=== PATIENT | female | born 1955 | race Caucasian/White ===

== ENCOUNTER → 2016-04-22 | Outpatient (CLI) | payer BC ==
[~2016-04-22] MED LIST: AMIT10TA6 PO; ASPI-435 PO; CALC600T9 PO; CRAN500C2 PO; GLC500 PO; HYDR-5688 PO; HYDR25TA4 PO; LISI1TAB3 PO; MULT-506 PO; OMEGCAP2 PO; SIMV40TA4 PO; VTMB12 PO
--- NOTE | 2016-04-22 11:44 | DIAGNOSTIC IMAGING REPORT ---
KUB CLINICAL HISTORY: Nephrolithiasis. COMPARISON STUDY: CT of the abdomen and pelvis July 09, 2015. FINDINGS: Pelvic calcifications likely reflect phleboliths or vascular calcifications. There is a suspected punctate calculus within the lower pole of the left kidney. No ureteral calculi are identified. No right renal calculi are identified although right renal shadow is largely obscured by stool. IMPRESSION: 1. Suspected left-sided nephrolithiasis. 2. No ureteral calculi identified. 3. Right renal shadow largely obscured by stool. Electronically signed by: Blake James M.D. 04/22/2016 11:43 AM Dictated Date/Time: 04/22/2016 11:39 AM
== END | disposition home or self-care (01) ==
LOC: C.RAD1850 11:21
PROVIDERS: ATTEND Internal Medicine
DX: N20.0 Calculus of kidney (principal); K59.00 Constipation, unspecified

== ENCOUNTER → 2016-06-28 | Outpatient (CLI) | payer BC ==
[~2016-06-28] MED LIST changes: -HYDR-5688 PO
== END | disposition home or self-care (01) ==
LOC: C.PAPS 10:52
PROVIDERS: ATTEND Obstetrics & Gynecology
DX: Z01.419 Encounter for gynecological examination (general) (routine) without abnormal findings (principal)

== ENCOUNTER → 2016-08-11 | Outpatient (CLI) | payer BC ==
--- NOTE | 2016-08-11 13:49 | DIAGNOSTIC IMAGING REPORT ---
ABDOMEN AND PELVIS CT WITHOUT CONTRAST CT DOSE: 998.73 mGycm HISTORY: Nephrocalcinosis N20.0 Nephrolithiasis TECHNIQUE: Multiaxial CT images of the abdomen and pelvis were performed without contrast. COMPARISON STUDY: 07/09/2015 FINDINGS: Minimal chronic interstitial change of the lung bases. Scarlike density with subtle nodular character anterior medial right phrenic angle. This measures 6 mm. No additional pulmonary nodular change. Liver spleen and pancreas appear unremarkable. Right kidney demonstrates a nonobstructing calcification at its lower pole measuring 4 mm. There is no evidence for a right-sided obstructing calculus. Left kidney demonstrates several nonobstructing upper pole renal calcifications. These measure up to 4 mm. Bowel pattern overall is nonobstructive. The appendix is normal. There are several pelvic vascular calcifications. There is a component of chronic sigmoid diverticulosis. There is no evidence for acute diverticulitis. IMPRESSION: 1. Several nonobstructing renal calcifications bilaterally. 2. No evidence for an obstructing urinary tract calculus. 3. Chronic sigmoid diverticulosis. 4. No evidence for acute diverticulitis. 5. Possible developing nodular density right base measuring 6 mm. Follow-up per Fleischner criteria. Please refer to below summary of Fleischner criteria recommendations for follow-up of incidental CT nodules (Ambar Smith, Guidelines for management of small pulmonary nodules detected on CT scans: A statement from the Fleischner Society, Radiology 237: [phone].) SOLID NODULES Solitary nodule size: <6 mm * low risk patients: no follow-up needed * high risk patients: optional CT at 12 months Solitary nodule size: 6-8 mm * low risk patients: follow-up at 6-12 months, then consider further follow-up at 18-24 months * high risk patients: initial follow-up CT at 6-12 months and then at 18-24 months if no change Solitary nodule size: >8 mm * either low or high risk patients - consider follow-up CT at 3 months, and/or CT-PET, and/or biopsy Multiple nodules size: <6 mm * low risk patients: no routine follow-up * high risk patients: optional CT at 12 months Multiple nodules size: 6-8 mm * low risk patients: follow-up at 3-6 months, then consider further follow-up at 18-24 months * high risk patients: follow-up at 3-6 months, then at 18-24 months if no change Multiple nodules size: >8 mm * low risk patients: follow-up at 3-6 months, then consider further follow-up at 18-24 months * high risk patients: follow-up at 3-6 months, then at 18-24 months if no change Note: newly detected indeterminate nodule in persons 35 years of age or older. * Low risk patients: minimal or absent history of smoking and/or other known risk factors * high risk patients: history of smoking or of other known risk factors (e.g. first degree relative with lung cancer, or exposure to asbestos, radon, uranium) * if a nodule up to 8 mm is partly solid or is ground glass further follow-up is required after 24 months to exclude possible slow growing adenocarcinoma (SERGE) SUBSOIL NODULES Solitary pure ground-glass nodule * nodule size <6 mm - no CT follow-up required * nodule size >=6 mm - follow-up CT at 6-12 months, then every 2 years until 5 years Solitary part-solid nodule * nodule size <6 mm - no CT follow-up required * nodule size >=6 mm - follow-up CT at 3-6 months. If unchanged, and solid component remains <6 mm, then annual follow-up for 5 years Multiple subsolid nodules * nodule size <6 mm - follow-up CT at 3-6 months, consider further follow-up at 2 and 4 years if stable * nodule size >=6 mm - follow-up CT at 3-6 months, subsequent management based on the most suspicious nodule(s) Electronically signed by: Richard Wilkerson M.D. 08/11/2016 1:48 PM Dictated Date/Time: 08/11/2016 1:42 PM
== END | disposition home or self-care (01) ==
LOC: C.CTS 13:01
PROVIDERS: ATTEND Urology
DX: N20.0 Calculus of kidney (principal); K57.30 Diverticulosis of large intestine without perforation or abscess without bleeding

== ENCOUNTER → 2016-08-11 | Outpatient (CLI) | payer BC ==
--- NOTE | 2016-08-11 10:18 | DIAGNOSTIC IMAGING REPORT ---
KUB CLINICAL HISTORY: N20.0 [id number] nephrocalcinosis COMPARISON STUDY: 04/22/2016 FINDINGS: 3.5 mm calcification lower pole right kidney most likely unchanged in the prior exam. No significant left-sided nephrocalcinosis on the current study. No significant paravertebral calcifications. Bowel pattern is nonobstructive. IMPRESSION: 1. Stable lower pole right renal calcification. This is seen in retrospect on the prior exam. 2. No significant left-sided nephrocalcinosis on the current study Electronically signed by: Richard Wilkerson M.D. 08/11/2016 10:17 AM Dictated Date/Time: 08/11/2016 10:13 AM
== END | disposition home or self-care (01) ==
LOC: C.RAD1850 09:40
PROVIDERS: ATTEND Urology
DX: N20.0 Calculus of kidney (principal)

== ENCOUNTER → 2016-09-07 | Outpatient (CLI) | payer BC ==
[~2016-09-07] MED LIST changes: +OPTIRAY 320 IV PRN
--- NOTE | 2016-09-07 08:37 | DIAGNOSTIC IMAGING REPORT ---
CHEST CT WITH CONTRAST CT DOSE: 232.95 mGy.cm HISTORY: R91.1 Solitary pulmonary [id number] TECHNIQUE: Multiaxial CT images of the chest were performed following the intravenous administration of contrast. A dose lowering technique was utilized adhering to the principles of ALARA. COMPARISON: Abdomen and pelvis CT 08/11/2016. FINDINGS: The central airways are patent. No pleural effusions. No pneumothorax. The left lung is clear. Small focal irregular density within the medial aspect of the right middle lobe is not significantly changed. This measures approximately 12 x 8 mm and demonstrates a linear appearance on coronal reformations. Therefore, this favors an area of scarring. No suspicious pulmonary nodules identified. No mediastinal or hilar lymphadenopathy. The visualized liver and spleen are unremarkable. No pleural effusions. Normal caliber thoracic aorta. The main pulmonary arteries are patent. IMPRESSION: A 12 x 8 mm focal irregular density within the the right middle lobe is not significantly changed. This favors an area of scarring . However, six-month to one-year chest CT follow-up can be performed to ensure stability. Electronically signed by: Jam Arevalo M.D. 09/07/2016 8:35 AM Dictated Date/Time: 09/07/2016 8:29 AM
== END | disposition home or self-care (01) ==
LOC: C.CTS 08:07
PROVIDERS: ATTEND Internal Medicine
DX: R91.1 Solitary pulmonary nodule (principal)

== ENCOUNTER → 2016-10-20 | Outpatient (CLI) | payer BC ==
[~2016-10-20] MED LIST changes: -OPTIRAY 320 IV PRN
--- NOTE | 2016-10-20 14:22 | MAMMOGRAPHY REPORT ---
BILATERAL DIGITAL SCREENING MAMMOGRAM TOMOSYNTHESIS WITH CAD: 10/20/2016 CLINICAL HISTORY: Routine screening. Patient has no complaints. TECHNIQUE: Breast tomosynthesis in addition to standard 2D mammography was performed. Current study was also evaluated with a Computer Aided Detection (CAD) system. COMPARISON: Comparison is made to exams dated: 10/17/2015 mammogram, 10/04/2014 mammogram, 09/13/2013 [facility] mogram, 09/11/2012 mammogram, 09/09/2011 mammogram, and 09/08/2010 mammogram - [facility] . BREAST COMPOSITION: There are scattered areas of fibroglandular density in both breasts. FINDINGS: No suspicious masses, calcifications, or areas of architectural distortion are noted in ei ther breast. There has been no significant interval change compared to prior exams. Bilateral benign -appearing calcifications are again noted. IMPRESSION: ACR BI-RADS CATEGORY 2: BENIGN There is no mammographic evidence of malignancy. A 1 year screening mammogram is recommended. The pa tient will receive written notification of the results. Approximately 10% of breast cancers are not detected with mammography. A negative mammographic report should not delay biopsy if a clinically suggestive mass is present. Nancy Bahena M.D. /:10/20/2016 12:21:52 Expressive Music Therapist: Tatiana LEVY)(M), [facility] letter sent: Normal 1/2 BI-RADS Code: ACR BI-RADS Category 2: Benign
== END | disposition home or self-care (01) ==
LOC: C.MAMM 11:53
PROVIDERS: ATTEND Obstetrics & Gynecology
DX: Z12.31 Encounter for screening mammogram for malignant neoplasm of breast (principal)

== ENCOUNTER → 2017-01-27 | Outpatient (CLI) | payer BC ==
--- NOTE | 2017-01-27 16:16 | DIAGNOSTIC IMAGING REPORT ---
CHEST 2 VIEWS ROUTINE HISTORY: COUGH COMPARISON: Chest 02/28/2015. FINDINGS: The lungs are clear. Cardiac silhouette is normal in size. No pleural effusions. No pneumothorax. IMPRESSION: No acute process. Electronically signed by: Jam Arevalo M.D. 01/27/2017 4:15 PM Dictated Date/Time: 01/27/2017 4:14 PM
== END | disposition home or self-care (01) ==
LOC: C.RAD1850 16:02
PROVIDERS: ATTEND Internal Medicine
DX: R05 Cough (principal)

== ENCOUNTER → 2017-03-24 | Outpatient (CLI) | payer OTHER ==
[~2017-03-24] MED LIST changes: +OPTIRAY 320 IV PRN
--- NOTE | 2017-03-24 11:45 | DIAGNOSTIC IMAGING REPORT ---
(CHEST) THORAX WITH CLINICAL HISTORY: 61 years-old Female presenting with ABNORMAL CT, DENSITY OF RT MIDDLE LOBE. TECHNIQUE: Multidetector CT imaging of the chest was performed after the administration of intravenous contrast. IV contrast: None. A dose lowering technique was used consistent with the principles of ALARA (as low as reasonably achievable). COMPARISON: CT chest from 09/07/2016. CT DOSE (mGy.cm): The estimated cumulative dose is 310.69 mGycm. FINDINGS: Chief Medical Officer topogram: Unremarkable. On soft tissue windows, normal thyroid and thoracic inlet. No axillary, supraclavicular, hilar, or mediastinal lymphadenopathy. Atherosclerosis of the aorta. Normal heart size. Coronary artery calcification. No pericardial or pleural effusion. Upper abdomen normal. On lung windows, previously noted bandlike consolidation in the medial right middle lobe is unchanged and consistent with atelectasis or scarring. No focal nodule. Minimal dependent atelectasis noted. Airways patent. On bone windows, degenerative changes of the spine. IMPRESSION: 1. Right middle lobe consolidation consistent with atelectasis or scarring. No suspicious pulmonary nodule. Electronically signed by: Pranav Prasad M.D. 03/24/2017 11:44 AM Dictated Date/Time: 03/24/2017 11:41 AM
== END | disposition home or self-care (01) ==
LOC: C.CTS 10:55
PROVIDERS: ATTEND Internal Medicine
DX: R91.1 Solitary pulmonary nodule (principal); R93.8 Abnormal findings on diagnostic imaging of other specified body structures

== ENCOUNTER 2024-02-02 22:30 | Observation (INO) ==
--- NOTE | 2024-02-02 22:50 | Emergency Department Note ---
History of Present Illness General Chief complaint: Urinary Symptoms Stated complaint: POSS UTI OR KIDNEY STONE, ABD PAIN, NAUSEA Time Seen by Provider: 02/02/24 22:33 History of Present Illness Maximum Pain Intensity: 8 This 68-year-old female who had a bladder sling procedure done 2 months ago with Rain and was recently treated for UTI with Keflex presents ER complaint of urinary symptoms left lower quadrant and left flank pain. She emailed her provider and was advised to give a urine sample but no order was placed. Patient denies fever, chills, vomiting. She appears uncomfortable on exam. She has a history of kidney stones and urine infections. Home Medications Medication Instructions Recorded Confirmed Type calcium carbonate 600 mg PO QDL 09/08/18 02/03/24 History cranberry 500 mg capsule 500 mg PO QAM 09/08/18 02/03/24 History cyanocobalamin (vitamin B-12) 1,000 mcg PO QAM 09/08/18 02/03/24 History 1,000 mcg tablet multivitamin (Daily Multi-Vitamin 1 tab PO QAM 09/08/18 02/03/24 History tablet) aspirin 81 mg tablet,delayed 81 mg PO DAILY 10/26/21 02/03/24 History release hydrochlorothiazide 25 mg tablet 25 mg PO QAM #90 tabs 03/30/23 02/03/24 Rx Bacillus coagulans 2 billion 1 ea PO DAILY 05/04/23 02/03/24 History cell-fucosyllactose 4 gram powder packet (Culturee Abdominal Support-Comft) metformin 1,000 mg tablet 1,000 mg PO BID #60 tabs 09/06/23 02/03/24 Rx ferrous sulfate 325 mg (65 mg 325 mg PO Q2D 11/16/23 02/03/24 History iron) tablet (Joaquim-Time) magnesium glycinate 100 mg (as 240 mg (2.4 x 100 mg) PO HS #30 11/16/23 02/03/24 Rx glycinate) tablet tabs omega-3 fatty acids 500 mg PO DAILY 11/16/23 02/03/24 History psyllium husk 0.4 gram capsule 0.4 g PO DAILY 11/16/23 02/03/24 History simvastatin 40 mg tablet 40 mg PO HS #90 tabs 11/16/23 02/03/24 Rx lisinopril 40 mg tablet 40 mg PO QAM #90 tabs 12/30/23 02/03/24 Rx valacyclovir 1 gram tablet 2,000 mg PO BID PRN Cold Sores 02/03/24 02/03/24 History Allergies Allergy/AdvReac Type Severity Reaction Status Date / Time azithromycin [From Zithromax] Allergy Intermediate Rash Verified 01/03/24 12:50 ciprofloxacin AdvReac Unknown Rash Verified 01/03/24 12:50 nitrofurantoin AdvReac Unknown GI symptoms Verified 01/03/24 12:50 Sulfa (Sulfonamide AdvReac Unknown Rash Verified 01/03/24 12:50 Antibiotics) Past Med/Surg History Problem List Hypomagnesemia (Acute) Acute pyelonephritis (Acute) History of cold sores Degenerative joint disease, right, foot Restless legs syndrome Solitary pulmonary nodule (Acute) Psoriasis (Acute) Pre-diabetes (Acute) Nephrolithiasis (Acute) Lymphocytic colitis (Acute) Hyperinsulinism (Acute) Eustachian tube dysfunction (Acute) Abnormal finding on mammography (Acute) Cervical radicular pain Carpal tunnel syndrome on both sides Pelvic floor dysfunction Mixed incontinence Stress incontinence Depression (Acute) Anxiety (Acute) Hypercholesterolemia (Acute) Hypertension (Acute) Insomnia (Acute) Osteopenia (Acute) Urinary urgency (Acute) Medical History History of COVID-19 Dx 01/2021 HSV infection History of nephrolithiasis Incontinence Surgical History History of cataract surgery B/L H/O cystoscopy 09/08/2021 Dr. Thomson S/P cystoscopy Cystoscopy, periurethral bulking agent (04/05/2020): MAC at [facility]. No issues noted per postop anesthesia progress note. History of tooth extraction History of colonoscopy History of carpal tunnel surgery R/L (2019) History of lithotripsy Renal History of dilation and curettage History of foot surgery History of myringoplasty History of Tympanic Membrane Repair - Left Ear History of section Family History Mother Acute myocardial infarction Father Mehreen's chorea Brother Haralson's chorea Coronary arteriosclerosis S/P CABG x 4 Myocardial infarction Denies family history of Ovarian cancer Prostate cancer Breast cancer Colorectal cancer Social History Smoking Status: Never smoker Second Hand Exposure: No; Do You Dip or Chew Tobacco: No; Hx Alcohol Use: Yes Alcohol type: beer, wine and hard liquor Alcohol type Comment: socially Hx Substance Use: No Preferred Language: Icelandic Communication Ability: Effective Visual Impairment: No Limitations Hearing Ability: Normal Floor Helper Required: No Beliefs That Will Affect Care: None marital status: Single Current Living Situation: Alone current occupational status: retired current occupation: retired from registration at [employer] Feels Safe at Home: Yes Childhood Exposure to Second-Hand Smoke: Yes Diet: regular caffeine: Yes Dental Care, Regularly: Yes Physical Activity Frequency: 5-6 Times per Week Seatbelt Use: always Sunscreen Use: Yes Assistive Devices: Glasses Review of Systems A total of 10 systems reviewed and were otherwise negative Physical Exam Vital Signs Vital Signs - 24 hr 02/02/24 22:32 02/02/24 23:28 02/02/24 23:31 Temperature 36.6 C Temperature Source Temporal Artery Scan Pulse Rate 108 H 82 Pulse Rate [Right Brachial] Pulse Rhythm [Right Brachial] Pulse Strength [Right Brachial] Respiratory Rate 18 Respiratory Effort / Characteristics Non-Labored Spontaneous Respiratory Depth Normal Respiratory Pattern Regular Blood Pressure 199/96 H Blood Pressure [Right Arm] Blood Pressure Mean 130 Blood Pressure Mean [Right Arm] Blood Pressure Position Sitting Blood Pressure Position [Right Arm] Pulse Oximetry 97 96 Oxygen Delivery Method Room Air Room Air Sepsis Recent Fever Within 48 Hours No Sepsis New/Unexplained Change in Mental Status N/A Sepsis Action Taken by Nursing No Action Required 02/03/24 00:30 02/03/24 02:00 Temperature Temperature Source Pulse Rate Pulse Rate [Right Brachial] 86 85 Pulse Rhythm [Right Brachial] Regular Regular Pulse Strength [Right Brachial] Normal Normal Respiratory Rate 16 18 Respiratory Effort / Characteristics Non-Labored Non-Labored Respiratory Depth Normal Normal Respiratory Pattern Regular Regular Blood Pressure Blood Pressure [Right Arm] 137/76 137/76 Blood Pressure Mean Blood Pressure Mean [Right Arm] 96 96 Blood Pressure Position Blood Pressure Position [Right Arm] Sitting Sitting Pulse Oximetry 96 96 Oxygen Delivery Method Room Air Room Air Sepsis Recent Fever Within 48 Hours Sepsis New/Unexplained Change in Mental Status Sepsis Action Taken by Nursing VITALS: Vitals are noted on the nurse's note and reviewed by myself. Vital signs stable. GENERAL: Pleasant female, in no acute distress, nondiaphoretic, well-developed well-nourished. SKIN: Capillary reflex less than 2 seconds. HEENT: Normocephalic. PERRLA. EOMI. Nares patent. Mucous membranes moist. Neck is supple without nuchal rigidity. HEART: Regular rate and rhythm LUNGS: Clear to auscultation bilaterally without wheezes, rales or rhonchi. No retractions or accessory muscle use. ABDOMEN: Positive bowel sounds x 4. Normal tympanic percussion. Soft, tender to palpation suprapubic left lower quadrant, without masses or organomegaly. Lugo sign negative. No guarding or rebound tenderness. no CVA tenderness MUSCULOSKELETAL: No gross musculoskeletal defects. NEURO: Patient was alert and oriented to person place and time. No focal neurological deficits. Course Administered Medications Magnesium Sulfate/Dextrose (Magnesium Sulfate / D5w) 1 gm in 100 mls @ 100 mls/hr IV Q1H ANTIONETTE Stop: 02/03/24 03:48 Last Admin: 02/03/24 01:55 Dose: 100 mls/hr Documented By: ROE Discontinued Medications Acetaminophen (Ofirmev) 1,000 mg in 100 mls @ 400 mls/hr IV NOW STA Stop: 02/02/24 23:00 Last Infusion: 02/02/24 23:37 Dose: Infused Documented By: Admin: 02/02/24 23:06 Dose: 400 mls/hr Documented By: ROE Ceftriaxone Sodium (Rocephin) 2,000 mg in 50 mls @ 100 mls/hr IV NOW STA Stop: 02/02/24 23:15 Last Infusion: 02/02/24 23:37 Dose: Infused Documented By: Admin: 02/02/24 23:06 Dose: 100 mls/hr Documented By: ROE Ioversol (Optiray 320 100ml) 100 ml IV ONCE ONE Stop: 02/03/24 00:12 Last Admin: 02/03/24 00:12 Dose: 93 ml Documented By: NOBLE Ondansetron HCl (Ondansetron Inj 2 Mg/Ml 2 Ml Vial) 4 mg IV NOW STA Stop: 02/02/24 22:47 Last Admin: 02/02/24 23:38 Dose: Not Given Documented By: ROE Potassium Chloride (Potassium Chloride 20 Meq/15 Ml Udc) 40 meq PO NOW STA Stop: 02/02/24 23:50 Last Admin: 02/03/24 00:01 Dose: 40 meq Documented By: ROE Medical Decision Making Medical Records Attestation: I reviewed the patient's medical records. Home Medications Current Medication List: was personally reviewed by me Laboratory Data Attestation: I reviewed the patient's lab results. 02/02/24 23:06 02/02/24 23:06 Lab Results 02/02/24 02/02/24 02/03/24 Range/Units 23:06 23:09 02:12 WBC 14.31 H (4.8-10.8) K/ul RBC 4.53 (4.20-5.40) M/uL Hgb 14.1 (12.0-16.0) g/dl Hct 39.5 (37.0-47.0) % MCV 87.2 (80.0-100.0) fL MCH 31.1 (25.0-34.0) pg MCHC 35.7 (32.0-36.0) g/dL RDW Std Deviation 39.6 (36.4-46.3) fL RDW Coeff of Ziyad 12.4 (11.5-14.5) % Plt Count 358 (130-400) K/uL MPV 9.1 L (9.4-12.4) fL Immature Gran % (Auto) 0.8 % Neut % (Auto) 63.3 % Lymph % (Auto) 26.8 % [place] % (Auto) 7.0 % Eos % (Auto) 1.7 % Baso % (Auto) 0.4 % Neut # (Auto) 9.05 H (1.40-6.50) K/uL Lymph # (Auto) 3.84 H (1.20-3.40) K/uL [place] # (Auto) 1.00 H (0.11-0.59) K/uL Eos # (Auto) 0.24 (0.00-0.50) K/uL Baso # (Auto) 0.06 (0.00-0.20) K/uL Immature Gran # (Auto) 0.12 (0.01-0.20) K/uL Sodium 134 L (136-145) mmol/L Potassium 3.1 L (3.5-5.1) mmol/L Chloride 96 L (98-107) mmol/L Carbon Dioxide 27 (21-32) mmol/L Anion Gap 11 (3-11) BUN 14 (6-23) mg/dl Creatinine 0.69 (0.6-1.2) mg/dl Est Cr Clr Drug Dosing 70.9 ml/min eGFR 94.47 BUN/Creatinine Ratio 20.3 H (10-20) Glucose 111 H (70-99(Fasting)) mg/dl Lactate 2.8 H* (0.4-2.0) mmol/L Calcium 9.6 (8.6-10.3) mg/dl Magnesium 1.3 L (1.7-2.4) mg/dl Total Bilirubin 0.4 (0.2-1.0) mg/dl AST 28 (13-39) U/L ALT 29 (7-52) U/L Alkaline Phosphatase 112 H (34-104) U/L Total Protein 7.0 (6.0-8.3) gm/dl Albumin 4.2 (3.4-5.0) gm/dl Globulin 2.8 (2.5-4.0) gm/dl Albumin/Globulin Ratio 1.5 (0.9-2) Lipase 37 (11-82) U/L Urine Color Yellow Urine Appearance Cloudy A (Clear) Urine pH 7.0 (4.5-7.5) Ur Specific [place] 1.009 (1.000-1.030) Urine Protein 1+ H (Negative) Urine Glucose (UA) Negative (Negative) Urine Ketones Negative (Negative) Urine Blood 2+ H (Negative) Urine Nitrite Negative (Negative) Urine Bilirubin Negative (Negative) Urine Urobilinogen Negative (Negative) Ur Leukocyte Esterase 3+ H (Negative) Urine WBC (Auto) >50 H (0-5) /hpf Urine RBC (Auto) 11-20 H (0-2) /hpf U Hyaline Cast (Auto) 3-5 H (0-2) /lpf U Epithel Cells (Auto) 0-2 (0-2) /hpf Urine Bacteria (Auto) 1+ H (None Seen) Imaging Data Attestation: I personally reviewed and interpreted this imaging study as follows: Radiologist's Impression: Abdomen/Pelvis CT 02/02/24 22:46 EXAM: CT abd pelvis IV con only CLINICAL HISTORY: LLQ pain, UTI, 93 ml optiray 320 TECHNIQUE: Contiguous axial images were obtained from the level of the diaphragm to the pubic symphysis with intravenous contrast. Coronal and sagittal reconstructions were likewise performed and indicated to increase the sensitivity for detecting clinically relevant pathology. If IV contrast material had not been administered, the likelihood of detecting abnormalities relevant to the patient's condition would have been substantially decreased. CT scan was performed according to ALARA (as low as reasonable achievable). COMPARISON: 10/26/2021 18:25:16 GARMENT CUTTER FINDINGS: The visualized lung bases are clear. The liver is normal in size and attenuation. No focal liver lesions are seen. There is no intra or extrahepatic biliary ductal dilatation. Hepatic vasculature is patent. The gallbladder is distended and shows a calculus of size 5 mm a normal wall thickness.. The spleen, pancreas, and adrenal glands are unremarkable. The kidneys are normal in size and attenuation. There is no hydronephrosis or perinephric fat stranding. Left kidney shows no obstructing calculus of size 6 mm and 2 mm in upper calyx. Mild enhancing thickening is noted involving left pelvi calyceal system and left ureter- possibility of pyelonephritis. The ureters are normal in caliber and no ureteral calculi are seen. The bladder is normal in contour. Pelvic viscera are unremarkable. No focal or diffuse bowel wall thickening or evidence of bowel obstruction is identified. The appendix is visualized in the right lower quadrant and appears within normal limits. Abdominal and pelvic vasculature is patent. No adenopathy or fluid collections are seen. No aggressive appearing osseous lesions are identified. Multiple small uncomplicated sigmoid colonic diverticulosis. IMPRESSION: Uncomplicated cholelithiasis.-stable. Non-obstructing left renal calculi.-stable. Mild enhancing thickening is noted involving left pelvi calyceal system and left ureter- possibility of pyelonephritis. Multiple small uncomplicated sigmoid colonic diverticulosis.-stable. Electronically signed by Anshul Hurtado 02-03-2024 01:41 AM MDM Narrative Prior records/ancillary studies reviewed. Triage Nursing notes reviewed. Additional history obtained from nursing. The patient's history was concerning for urinary symptoms and abdominal pain. Differential diagnosis: Etiologies such as appendicitis, diverticulitis, PUD, biliary pathology, UTI, pancreatitis, obstruction, mesenteric ischemia, aortic pathology, infections, inflammatory bowel disease, renal colic, as well as others were entertained. Physical examination findings: As above. ER treatment provided: An order was placed for continuous cardiac monitoring. The monitor shows a rate of 60-100 with a sinus rhythm per my Independent interpretation. Rocephin, Zofran and Tylenol ordered Magnesium was replaced On reassessment the patient felt better. Diagnostics interpreted by me: The labs Independently Interpreted by myself revealed leukocytosis, urine concerning for infection sent for culture Blood cultures pending Low magnesium and this was replaced Imaging studies: CT was reviewed and read by radiology as above Consultation: A consultation was placed with the hospitalist. The case was discussed and diagnostics were reviewed. The patient was evaluated in the ER for further treatment. Exam and history seem consistent with pyelonephritis and low magnesium. Patient was given antibiotics upon initial evaluation. Urine culture pending. Medicine was consulted and the case is discussed. She will be admitted to the medical service. By the evaluation outlined above emergent etiologies such as appendicitis, diverticulitis, PUD, biliary pathology, pancreatitis, obstruction, mesenteric ischemia, aortic pathology, inflammatory bowel disease, renal colic, as well as others were deemed relatively unlikely. The pt informed about the findings as listed above. All questions were answered and pleased with the treatment. The chart was completed utilizing Max[employer]iser Speech voice recognition software. Grammatical errors, random word insertions, pronoun errors, and incomplete sentences are an occassional consequence of this system due to software limitations, ambient noise, and hardware issues. Any formal questions or concerns about the content, text, or information contained within the body of this dictation should be directly addressed to the physician respiratory care assistant for clarification. Impression & Plan Acute pyelonephritis, Hypomagnesemia Discharge Plan Visit Data Chief Complaint: Urinary Symptoms Stated Complaint: POSS UTI OR KIDNEY STONE, ABD PAIN, NAUSEA ED Provider: Ana Swenson ED Midlevel Provider: Debbie Groves Discharge Problem: Acute pyelonephritis, Hypomagnesemia Patient Disposition: Admitted As Inpatient Condition: Good Forms Stand Alone Forms: Clearwave Prescriptions Prescriptions: No Action cyanocobalamin (vitamin B-12) 1,000 mcg tablet 1,000 mcg PO QAM multivitamin [Daily Multi-Vitamin] tablet 1 tab PO QAM cranberry 500 mg capsule 500 mg PO QAM calcium carbonate 600 mg calcium (1,500 mg) tablet 600 mg PO QDL Culturelle Abdominal Supp-Cmft 2 billion cell- 4 gram powder in packet 1 ea PO DAILY psyllium husk 0.4 gram capsule 0.4 g PO DAILY ferrous sulfate [Joaquim-Time] 325 mg (65 mg iron) tablet 325 mg PO Q2D magnesium glycinate 100 mg tablet 240 mg PO HS Qty: 30 0RF simvastatin 40 mg tablet 40 mg PO HS Qty: 90 3RF metformin 1,000 mg tablet 1,000 mg PO BID Qty: 60 6RF lisinopril 40 mg tablet 40 mg PO QAM Qty: 90 3RF hydrochlorothiazide 25 mg tablet 25 mg PO QAM Qty: 90 3RF aspirin [Aspir-Low] 81 mg Tablet,Delayed Release (Dr/Ec) 81 mg PO DAILY omega-3 fatty acids Capsule 500 mg PO DAILY valacyclovir 1 gram tablet 2,000 mg PO BID PRN (Reason: Cold Sores) Rx Instructions: For cold sore Referrals Referrals: Atiya Hinton MD [Primary Care Provider] -
[2024-02-02] MEDS: cefTRIAXone SODIUM 2,000 MG/50 ML BAG IV STA (23:06)
[2024-02-02] MEDS: ACETAMINOPHEN 1,000 MG/100 ML VIAL IV STA (23:06)
[2024-02-02] MEDS: ONDANSETRON INJ 2 MG/ML 2 ML VIAL IV STA (23:38)
[2024-02-02 23:41] LABS: Basophils # (auto) 0.06 K/uL (0.00-0.20); Basophils % (auto) 0.4 %; Eosinophils # (auto) 0.24 K/uL (0.00-0.50); Eosinophils % (auto) 1.7 %; Hematocrit (blood only) 39.5 % (37.0-47.0); Hemoglobin 14.1 g/dl (12.0-16.0); Immature Granulocytes # (auto) 0.12 K/uL (0.01-0.20); Immature Granulocytes % (auto) 0.8 %; Lymphocytes # (auto) 3.84 K/uL (1.20-3.40); Lymphocytes % (auto) 26.8 %; Mean Corpuscular Hemoglobin 31.1 pg (25.0-34.0); Mean Corpuscular Hgb Conc 35.7 g/dL (32.0-36.0); Mean Corpuscular Volume 87.2 fL (80.0-100.0); Mean Platelet Volume 9.1 fL (9.4-12.4); Neutrophils # (auto) 9.05 K/uL (1.40-6.50); Neutrophils % (auto) 63.3 %; Platelet Count 358 K/uL (130-400); RDW Coefficient of Variation 12.4 % (11.5-14.5); RDW Standard Deviation 39.6 fL (36.4-46.3); Red Blood Count 4.53 M/uL (4.20-5.40); White Blood Count 14.31 K/ul (4.8-10.8)
[2024-02-02 23:48] LABS: Albumin Globulin Ratio 1.5 (0.9-2); Albumin Level 4.2 gm/dl (3.4-5.0); BUN Creatinine Ratio 20.3 (10-20); Bilirubin,Total 0.4 mg/dl (0.2-1.0); Calcium 9.6 mg/dl (8.6-10.3); Creatinine Clr Calc Pharmacy 70.9 ml/min; Globulin 2.8 gm/dl (2.5-4.0); Potassium 3.1 mmol/L (3.5-5.1)
[2024-02-02 23:51] LABS: Appearance Urine Cloudy (Clear); Bacteria Urine Automated 1+ (None Seen); Bilirubin Urine Negative (Negative); Blood Urine 2+ (Negative); Color Urine Yellow; Epithelial Cell Urine Auto 0-2 /hpf (0-2); Glucose Urine UA Negative (Negative); Ketones Urine Negative (Negative); Leukocyte Esterase Urine 3+ (Negative); Nitrite Urine Negative (Negative); Protein Urine 1+ (Negative); Specific Gravity Urine 1.009 (1.000-1.030); Urobilinogen Urine Negative (Negative); WBC Urine Automated >50 /hpf (0-5)
[2024-02-03] MEDS: POTASSIUM CHLORIDE 20 MEQ/15 ML UDC PO STA (00:01)
[2024-02-03 00:09] LABS: Magnesium 1.3 mg/dl (1.7-2.4)
[2024-02-03] MEDS: OPTIRAY 320 100ml IV ONE (00:12)
--- NOTE | 2024-02-03 01:42 | CT Scan Report ---
EXAM: CT abd pelvis IV con only CLINICAL HISTORY: LLQ pain, UTI, 93 ml optiray 320 TECHNIQUE: Contiguous axial images were obtained from the level of the diaphragm to the pubic symphysis with intravenous contrast. Coronal and sagittal reconstructions were likewise performed and indicated to increase the sensitivity for detecting clinically relevant pathology. If IV contrast material had not been administered, the likelihood of detecting abnormalities relevant to the patient's condition would have been substantially decreased. CT scan was performed according to ALARA (as low as reasonable achievable). COMPARISON: 10/26/2021 18:25:16 RN BUILDING FINDINGS: The visualized lung bases are clear. The liver is normal in size and attenuation. No focal liver lesions are seen. There is no intra or extrahepatic biliary ductal dilatation. Hepatic vasculature is patent. The gallbladder is distended and shows a calculus of size 5 mm a normal wall thickness.. The spleen, pancreas, and adrenal glands are unremarkable. The kidneys are normal in size and attenuation. There is no hydronephrosis or perinephric fat stranding. Left kidney shows no obstructing calculus of size 6 mm and 2 mm in upper calyx. Mild enhancing thickening is noted involving left pelvi calyceal system and left ureter- possibility of pyelonephritis. The ureters are normal in caliber and no ureteral calculi are seen. The bladder is normal in contour. Pelvic viscera are unremarkable. No focal or diffuse bowel wall thickening or evidence of bowel obstruction is identified. The appendix is visualized in the right lower quadrant and appears within normal limits. Abdominal and pelvic vasculature is patent. No adenopathy or fluid collections are seen. No aggressive appearing osseous lesions are identified. Multiple small uncomplicated sigmoid colonic diverticulosis. IMPRESSION: Uncomplicated cholelithiasis.-stable. Non-obstructing left renal calculi.-stable. Mild enhancing thickening is noted involving left pelvi calyceal system and left ureter- possibility of pyelonephritis. Multiple small uncomplicated sigmoid colonic diverticulosis.-stable. Electronically signed by Anshul Hurtado 02-03-2024 01:41 AM
--- NOTE | 2024-02-03 01:49 | Emergency Department Note ---
ED Visit Note I was consulted by the Advanced Practice Provider. I personally approved the management plan and take responsibility for the patient management. This includes the aspects of: -History/Physical -MDM -I independently interpreted the following studies:Studies and results .
[2024-02-03] MEDS: MAGNESIUM SULFATE / D5W 1 GM/100 ML BAG IV SCH (01:55)
--- NOTE | 2024-02-03 02:18 | History & Physical Report ---
Date of Service February 03, 2024 Assessment & Plan (1) Acute pyelonephritis: Plan: 60-year-old female with history of bladder sling surgery performed approximately 2 months ago presenting with 1 day of urinary symptoms, pelvic pressure, dysuria and increased frequency. She is afebrile, hemodynamically stable. Labs are significant for leukocytosis with WBC of 14.31, neutrophil predominance. Renal function is within limits. CT of the abdomen as above with nonobstructing renal stones and evidence of left sided pyelonephritis. Of note, patient with prior remote history of Pseudomonas UTI. observation to medical follow cultures sent by the ER, blood and urine Treatment with cefepime 2 g IV every 8 hours pending culture results Tylenol as needed Zofran as needed (2) Hypertension: Plan: Blood pressure stable. Continue lisinopril 40 mg p.o. every morningwill hold hydrochlorothiazide (3) Hypercholesterolemia: Plan: Chronic. Stable. Continue simvastatin 40 mg p.o. nightly Plan F/E/N - Normal saline at 125 mL/h x 2 L, magnesium repleted, heart healthy diet as tolerated Prophylaxislow risk for DVT, encourage ambulation as tolerated Codefull per discussion with patient Dispositionobservation to medical History of Present Illness Chief Complaint: UTI Primary Care Provider: Atiya Hinton MD Jose Ackerman is a pleasant 60-year-old female with history of hypertension, hyperlipidemia presenting with UTI symptoms. patient had a bladder sling surgery performed on 11/25/2023 at [facility] with Dr. Burton. She reports that the surgery went well with no complications. She had a routine follow-up on 12/27/2023 and everything was fine. She was seen by gynecology on 01/03 for her annual physical. she developed UTI symptoms described as bladder pressure, increased urinary frequency, slow urinary stream and pain after urinating. She was started on Keflex which she completed and her symptoms improved. 1 day ago patient developed similar symptoms with bladder pressure, increased urinary frequency, decreased output and painful urination. She reports that her pain was so severe today it prompted her to come to the ER. She has been afebrile but has had some chills, hemodynamically stable. She has also had some nausea. Denies flank pain. Denies chest pain, cough, shortness of breath. No additional complaints at this time. In the ER she is afebrile, hemodynamically stable and nontoxic in appearance. ER course: Tylenol Ceftriaxone Allergies Allergy/AdvReac Type Severity Reaction Status Date / Time azithromycin [From Zithromax] Allergy Intermediate Rash Verified 01/03/24 12:50 ciprofloxacin AdvReac Unknown Rash Verified 01/03/24 12:50 nitrofurantoin AdvReac Unknown GI symptoms Verified 01/03/24 12:50 Sulfa (Sulfonamide AdvReac Unknown Rash Verified 01/03/24 12:50 Antibiotics) Home Medications Medication Instructions Recorded Confirmed Type calcium carbonate 600 mg PO QDL 09/08/18 02/03/24 History cranberry 500 mg capsule 500 mg PO QAM 09/08/18 02/03/24 History cyanocobalamin (vitamin B-12) 1,000 mcg PO QAM 09/08/18 02/03/24 History 1,000 mcg tablet multivitamin (Daily Multi-Vitamin 1 tab PO QAM 09/08/18 02/03/24 History tablet) aspirin 81 mg tablet,delayed 81 mg PO DAILY 10/26/21 02/03/24 History release hydrochlorothiazide 25 mg tablet 25 mg PO QAM #90 tabs 03/30/23 02/03/24 Rx Bacillus coagulans 2 billion 1 ea PO DAILY 05/04/23 02/03/24 History cell-fucosyllactose 4 gram powder packet (Culturelle Abdominal Support-Comft) metformin 1,000 mg tablet 1,000 mg PO BID #60 tabs 09/06/23 02/03/24 Rx ferrous sulfate 325 mg (65 mg 325 mg PO Q2D 11/16/23 02/03/24 History iron) tablet (Joaquim-Time) magnesium glycinate 100 mg (as 240 mg (2.4 x 100 mg) PO HS #30 11/16/23 02/03/24 Rx glycinate) tablet tabs omega-3 fatty acids 500 mg PO DAILY 11/16/23 02/03/24 History psyllium husk 0.4 gram capsule 0.4 g PO DAILY 11/16/23 02/03/24 History simvastatin 40 mg tablet 40 mg PO HS #90 tabs 11/16/23 02/03/24 Rx lisinopril 40 mg tablet 40 mg PO QAM #90 tabs 12/30/23 02/03/24 Rx valacyclovir 1 gram tablet 2,000 mg PO BID PRN Cold Sores 02/03/24 02/03/24 History Past Med/Surg History Problem List Hypomagnesemia (Acute) Acute pyelonephritis (Acute) History of cold sores Degenerative joint disease, right, foot Restless legs syndrome Solitary pulmonary nodule (Acute) Psoriasis (Acute) Pre-diabetes (Acute) Nephrolithiasis (Acute) Lymphocytic colitis (Acute) Hyperinsulinism (Acute) Eustachian tube dysfunction (Acute) Abnormal finding on mammography (Acute) Cervical radicular pain Carpal tunnel syndrome on both sides Pelvic floor dysfunction Mixed incontinence Stress incontinence Depression (Acute) Anxiety (Acute) Hypercholesterolemia (Acute) Hypertension (Acute) Insomnia (Acute) Osteopenia (Acute) Urinary urgency (Acute) Medical History History of COVID-19 Dx 01/2021 HSV infection History of nephrolithiasis Incontinence Surgical History History of cataract surgery B/L H/O cystoscopy 09/08/2021 Dr. Thomson S/P cystoscopy Cystoscopy, periurethral bulking agent (04/05/2020): MAC at [facility]. No issues noted per postop anesthesia progress note. History of tooth extraction History of colonoscopy History of carpal tunnel surgery R/L (2019) History of lithotripsy Renal History of dilation and curettage History of foot surgery History of myringoplasty History of Tympanic Membrane Repair - Left Ear History of section Family History Mother Acute myocardial infarction Father Morris's chorea Brother Morris's chorea Coronary arteriosclerosis S/P CABG x 4 Myocardial infarction Denies family history of Ovarian cancer Prostate cancer Breast cancer Colorectal cancer Social History Smoking Status: Never smoker Second Hand Exposure: No; Do You Dip or Chew Tobacco: No; Hx Alcohol Use: Yes Alcohol type: beer, wine and hard liquor Alcohol type Comment: socially Hx Substance Use: No Preferred Language: Taiwanese Communication Ability: Effective Visual Impairment: No Limitations Hearing Ability: Normal Supervisor Slashing Department Required: No Beliefs That Will Affect Care: None marital status: Single Current Living Situation: Alone current occupational status: retired current occupation: retired from registration at [employer] Feels Safe at Home: Yes Childhood Exposure to Second-Hand Smoke: Yes Diet: regular caffeine: Yes Dental Care, Regularly: Yes Physical Activity Frequency: 5-6 Times per Week Seatbelt Use: always Sunscreen Use: Yes Assistive Devices: Glasses Review of Systems Review of Systems: All systems reviewed & are unremarkable except as noted in HPI & below Physical Exam Physical Exam: General: patient resting comfortably, NAD, non-toxic in appearance, AA&O x 4 Skin: warm, dry, intact, no rashes or lesions HEENT: NC/AT, PERRL, EOMI, anicteric sclera, conjunctiva without injection, external ear normal to inspection and nontender, nares patent, moist mucus membranes, dentition intact, no oropharyngeal lesions, neck supple, trachea midline, no LAD, no thyromegaly, no JVD Heart: +S1/S2, regular, no m/r/g Lungs: equal air entry bilaterally, no rales/rhonchi/wheezes Abd: +BS, soft, NT/ND, no masses/organomegaly/ascites Ext: warm, 2+ pulses in UE/LE bilaterally, no clubbing/cyanosis or edema Neuro: nonfocal, patient AA&O x 4, speech intact, no facial droop, moving all extremities on command with equal strength 5/5 Results & Data Results & Data Vital Signs (Past 12 Hours) Vital Signs Temp Pulse Pulse Resp BP BP Pulse Ox 02/03/24 02:00 85 18 137/76 96 02/03/24 00:30 86 16 137/76 96 02/02/24 23:31 96 02/02/24 23:28 82 02/02/24 22:32 36.6 C 108 H 18 199/96 H 97 O2 Del Method 02/03/24 02:00 Room Air 02/03/24 00:30 Room Air 02/02/24 23:31 Room Air 02/02/24 23:28 02/02/24 22:32 Room Air Laboratory Results Laboratory Results WBC 14.31 K/ul (4.8-10.8) H 02/02/24 23:06 RBC 4.53 M/uL (4.20-5.40) 02/02/24 23:06 Hgb 14.1 g/dl (12.0-16.0) 02/02/24 23:06 Hct 39.5 % (37.0-47.0) 02/02/24 23:06 MCV 87.2 fL (80.0-100.0) 02/02/24 23:06 MCH 31.1 pg (25.0-34.0) 02/02/24 23:06 MCHC 35.7 g/dL (32.0-36.0) 02/02/24 23:06 RDW Std Deviation 39.6 fL (36.4-46.3) 02/02/24 23:06 RDW Coeff of Ziyad 12.4 % (11.5-14.5) 02/02/24 23:06 Plt Count 358 K/uL (130-400) 02/02/24 23:06 MPV 9.1 fL (9.4-12.4) L 02/02/24 23:06 Immature Gran % (Auto) 0.8 % 02/02/24 23:06 Neut % (Auto) 63.3 % 02/02/24 23:06 Lymph % (Auto) 26.8 % 02/02/24 23:06 Wallace % (Auto) 7.0 % 02/02/24 23:06 Eos % (Auto) 1.7 % 02/02/24 23:06 Baso % (Auto) 0.4 % 02/02/24 23:06 Neut # (Auto) 9.05 K/uL (1.40-6.50) H 02/02/24 23:06 Lymph # (Auto) 3.84 K/uL (1.20-3.40) H 02/02/24 23:06 Wallace # (Auto) 1.00 K/uL (0.11-0.59) H 02/02/24 23:06 Eos # (Auto) 0.24 K/uL (0.00-0.50) 02/02/24 23:06 Baso # (Auto) 0.06 K/uL (0.00-0.20) 02/02/24 23:06 Immature Gran # (Auto) 0.12 K/uL (0.01-0.20) 02/02/24 23:06 Sodium 134 mmol/L (136-145) L 02/02/24 23:06 Potassium 3.1 mmol/L (3.5-5.1) L 02/02/24 23:06 Chloride 96 mmol/L (98-107) L 02/02/24 23:06 Carbon Dioxide 27 mmol/L (21-32) 02/02/24 23:06 Anion Gap 11 (3-11) 02/02/24 23:06 BUN 14 mg/dl (6-23) 02/02/24 23:06 Creatinine 0.69 mg/dl (0.6-1.2) 02/02/24 23:06 Est Cr Clr Drug Dosing 70.9 ml/min 02/02/24 23:06 eGFR 94.47 02/02/24 23:06 BUN/Creatinine Ratio 20.3 (10-20) H 02/02/24 23:06 Glucose 111 mg/dl (70-99(Fasting)) H 02/02/24 23:06 Lactate 2.8 mmol/L (0.4-2.0) H* 02/03/24 02:12 Calcium 9.6 mg/dl (8.6-10.3) 02/02/24 23:06 Magnesium 1.3 mg/dl (1.7-2.4) L 02/02/24 23:06 Total Bilirubin 0.4 mg/dl (0.2-1.0) 02/02/24 23:06 AST 28 U/L (13-39) 02/02/24 23:06 ALT 29 U/L (7-52) 02/02/24 23:06 Alkaline Phosphatase 112 U/L (34-104) H 02/02/24 23:06 Total Protein 7.0 gm/dl (6.0-8.3) 02/02/24 23:06 Albumin 4.2 gm/dl (3.4-5.0) 02/02/24 23:06 Globulin 2.8 gm/dl (2.5-4.0) 02/02/24 23:06 Albumin/Globulin Ratio 1.5 (0.9-2) 02/02/24 23:06 Lipase 37 U/L (11-82) 02/02/24 23:06 Urine Color Yellow 02/02/24 23:09 Urine Appearance Cloudy (Clear) A 02/02/24 23:09 Urine pH 7.0 (4.5-7.5) 02/02/24 23:09 Ur Specific [place] 1.009 (1.000-1.030) 02/02/24 23:09 Urine Protein 1+ (Negative) H 02/02/24 23:09 Urine Glucose (UA) Negative (Negative) 02/02/24 23:09 Urine Ketones Negative (Negative) 02/02/24 23:09 Urine Blood 2+ (Negative) H 02/02/24 23:09 Urine Nitrite Negative (Negative) 02/02/24 23:09 Urine Bilirubin Negative (Negative) 02/02/24 23:09 Urine Urobilinogen Negative (Negative) 02/02/24 23:09 Ur Leukocyte Esterase 3+ (Negative) H 02/02/24 23:09 Urine WBC (Auto) >50 /hpf (0-5) H 02/02/24 23:09 Urine RBC (Auto) 11-20 /hpf (0-2) H 02/02/24 23:09 U Hyaline Cast (Auto) 3-5 /lpf (0-2) H 02/02/24 23:09 U Epithel Cells (Auto) 0-2 /hpf (0-2) 02/02/24 23:09 Urine Bacteria (Auto) 1+ (None Seen) H 02/02/24 23:09 Impressions Abdomen/Pelvis CT 02/02/24 22:46 EXAM: CT abd pelvis IV con only CLINICAL HISTORY: LLQ pain, UTI, 93 ml optiray 320 TECHNIQUE: Contiguous axial images were obtained from the level of the diaphragm to the pubic symphysis with intravenous contrast. Coronal and sagittal reconstructions were likewise performed and indicated to increase the sensitivity for detecting clinically relevant pathology. If IV contrast material had not been administered, the likelihood of detecting abnormalities relevant to the patient's condition would have been substantially decreased. CT scan was performed according to ALARA (as low as reasonable achievable). COMPARISON: 10/26/2021 18:25:16 DRUPAL DEVELOPER FINDINGS: The visualized lung bases are clear. The liver is normal in size and attenuation. No focal liver lesions are seen. There is no intra or extrahepatic biliary ductal dilatation. Hepatic vasculature is patent. The gallbladder is distended and shows a calculus of size 5 mm a normal wall thickness.. The spleen, pancreas, and adrenal glands are unremarkable. The kidneys are normal in size and attenuation. There is no hydronephrosis or perinephric fat stranding. Left kidney shows no obstructing calculus of size 6 mm and 2 mm in upper calyx. Mild enhancing thickening is noted involving left pelvi calyceal system and left ureter- possibility of pyelonephritis. The ureters are normal in caliber and no ureteral calculi are seen. The bladder is normal in contour. Pelvic viscera are unremarkable. No focal or diffuse bowel wall thickening or evidence of bowel obstruction is identified. The appendix is visualized in the right lower quadrant and appears within normal limits. Abdominal and pelvic vasculature is patent. No adenopathy or fluid collections are seen. No aggressive appearing osseous lesions are identified. Multiple small uncomplicated sigmoid colonic diverticulosis. IMPRESSION: Uncomplicated cholelithiasis.-stable. Non-obstructing left renal calculi.-stable. Mild enhancing thickening is noted involving left pelvi calyceal system and left ureter- possibility of pyelonephritis. Multiple small uncomplicated sigmoid colonic diverticulosis.-stable. Electronically signed by Anshul Hurtado 02-03-2024 01:41 AM PG Care Time/CCT Total # of Minutes Spent Total Time Spent with Patient: Total time spent is greater than 50% in coordination of care (as documented) at patient's floor/unit and/or counseling patient: Coding Level of Care Code 74680 INT INP/OBS CARE 2/55MIN Diagnoses Acute pyelonephritis N10 Hypertension I10 Hypercholesterolemia E78.00
[2024-02-03] MEDS ORDERED: ONDANSETRON INJ 2 MG/ML 2 ML VIAL IV PRN (03:26)
[2024-02-03] MEDS: CEFEPIME 2000MG 2,000 MG/20 ML SYR IV STA (04:10)
[2024-02-03] MEDS: SODIUM CHLORIDE 0.9% 1,000 ML IV SCH (04:56)
[2024-02-03] MEDS: ASPIRIN 81 MG ECTAB PO SCH (08:15)
[2024-02-03] MEDS: lisinopril 40 MG TAB PO SCH (08:15)
[2024-02-03 09:16] LABS: BUN Creatinine Ratio 18.2 (10-20); Calcium 8.9 mg/dl (8.6-10.3); Potassium 3.7 mmol/L (3.5-5.1)
[2024-02-03 09:21] LABS: Basophils # (auto) 0.05 K/uL (0.00-0.20); Basophils % (auto) 0.5 %; Eosinophils # (auto) 0.14 K/uL (0.00-0.50); Eosinophils % (auto) 1.5 %; Hematocrit (blood only) 37.8 % (37.0-47.0); Hemoglobin 13.4 g/dl (12.0-16.0); Immature Granulocytes # (auto) 0.07 K/uL (0.01-0.20); Immature Granulocytes % (auto) 0.7 %; Lymphocytes # (auto) 2.67 K/uL (1.20-3.40); Lymphocytes % (auto) 27.8 %; Mean Corpuscular Hemoglobin 31.5 pg (25.0-34.0); Mean Corpuscular Hgb Conc 35.4 g/dL (32.0-36.0); Mean Corpuscular Volume 88.7 fL (80.0-100.0); Mean Platelet Volume 9.2 fL (9.4-12.4); Monocytes # (auto) 0.48 K/uL (0.11-0.59); Neutrophils # (auto) 6.19 K/uL (1.40-6.50); Neutrophils % (auto) 64.5 %; Platelet Count 356 K/uL (130-400); RDW Coefficient of Variation 12.6 % (11.5-14.5); RDW Standard Deviation 40.8 fL (36.4-46.3); Red Blood Count 4.26 M/uL (4.20-5.40)
[2024-02-03] MEDS: CEFEPIME 2000MG 2,000 MG/20 ML SYR IV SCH (11:26)
--- NOTE | 2024-02-03 13:14 | Hospitalist Progress Note ---
Date of Service February 03, 2024 Assessment & Plan (1) Acute pyelonephritis: (2) Hypertension: (3) Hypercholesterolemia: Plan Acute pyelonephritis - CT AP: nonobstructing renal stones and left pyelonephritis w/o flank pain - Patient afebrile and hemodynamically stable - Treatment with cefepime 2 g IV every 8 hours pending culture results - Blood and urine cultures pending - Patient allergic to Bactrim, ciprofloxacin, nitrofurantoin and azithromycin - Patient improved on Keflex in early January, potential abx therapy tbd once sensitivities are completed - Tylenol as needed - Zofran as needed HTN Blood pressure stable. Continue lisinopril 40 mg p.o. every morningwill hold hydrochlorothiazide HLD Chronic. Stable. Continue simvastatin 40 mg p.o. nightly F/E/N - Normal saline at 125 mL/h x 2 L, magnesium repleted, heart healthy diet as tolerated Prophylaxislow risk for DVT, encourage ambulation as tolerated Codefull per discussion with patient Dispositionobservation to medical Admission and Anticipated Discharge Date Admission Date: February 03, 2024 Supervising Physician Co-Signing Physician Notes ATTESTATION I also saw the patient and confirmed payne portions of the history and exam. I agree with the impression and plan in the resident documentation, and as summarized below. upon my exam this morning, the patient is resting in bed. She is a friend at bedside. She still has some mild left lower quadrant/flank pain, but this is better compared to admission. She is actually anxious for discharge if able. EXAM 130/82, 72, 18, 36.2, 97% room air Alert and oriented. No distress appreciated. Heart regular rate and rhythm Lungs clear with nonlabored respirations Abdomen soft and nontender DATA Labs leukocytosis has resolved; this morning's white blood cell count 9.60, down from 14.31 serum sodium has normalized at 138; potassium 3.7, creatinine 0.55, BUN [address] scan of the abdomen pelvis completed upon admission showed nonobstructing left renal calculi, uncomplicated cholelithiasis, mild enhancing thickening of the left pelvic collecting system and left ureter possibly consistent with pyelonephritis. Micro Urine culture collected 02/02/2024 is pending. Blood cultures collected 02/03/2024 are pending. IMPRESSION & PLAN Acute pyelonephritis hyponatremia, resolved hypokalemia, resolved Continue Cefepime Await culture results While she looks well (less pain, afebrile, resolved leukocytosis) feel we should wait for at least 24-hour culture results before discharge Additional per resident documentation Subjective Jose Ackerman is a 68 y/o F with a past medical history of HTN, rstless legs syndrome, stress incontinence, insomnia, and hx of cold sores admitted to [facility] due to one day of increased pelvic pain, dysuria, and increased urgency. Left sided pyelonephritis found on CT AP. Today patient is seen resting comfortably at bedside. Patient endorses increased pelvic pain/pressure occurring for the past few months since her bladder sling surgery 11/[address] Burton at [facility]. Patient had f/u on 12/26 and a physical exam with gynecology on 01/03 without issue. Patient then developed a UTI a few days later and was treated in early January with Keflex. Today patient is feeling well and does endorse ongoing mild burning on urination with pelvic pain. Patient notes that the pelvic pain is not new, and when discussing this with her relocation counselor Dr. Sawyer and Dr. Burton was told that this post-operative pressure/pain may persist for approximately 3 months. Patient denies flank pain, abominal pain, nausea, vomiting, dizziness, SOB, cough, or wheeze today. Physical Exam Physical Exam: General: patient resting comfortably, NAD, non-toxic in appearance, answers questions appropriately. Skin: warm, dry, intact HEENT: NC/AT, anicteric sclera, conjunctiva without injection, moist mucus membranes. Heart: +S1/S2, regular, no m/r/g Lungs: equal air entry bilaterally, no rales/rhonchi/wheezes Abd: +BS, soft, NT/ND Ext: warm, no clubbing/cyanosis or edema Neuro: nonfocal, speech intact, no facial droop, moving all extremities. Results & Data Results & Data Vital Signs (Past 12 Hours) Vital Signs Temp Pulse Pulse Resp BP Pulse Ox O2 Del Method 02/03/24 07:16 36.2 C L 72 18 130/82 97 Room Air 02/03/24 05:21 Room Air 02/03/24 05:21 36.6 C 70 20 113/72 96 Room Air 02/03/24 04:09 79 16 127/81 98 Room Air 02/03/24 02:00 85 18 137/76 96 Room Air Resident Activity Tracking Resident Involvement: Resident Care Provided Care Provided: Adult Hospital Medicine
[2024-02-03] MEDS: ACETAMINOPHEN 325 MG TAB PO PRN (16:17)
[2024-02-03 20:29] VITALS: TEMP 98.1
[2024-02-03] MEDS: SIMVASTATIN 40 MG TAB PO SCH (20:31)
[2024-02-04 08:10] VITALS: BP 132/82; PULSE 65; RESP 16; O2SAT 98
[2024-02-04 09:11] LABS: Basophils # (auto) 0.06 K/uL (0.00-0.20); Basophils % (auto) 0.7 %; Eosinophils # (auto) 0.24 K/uL (0.00-0.50); Eosinophils % (auto) 2.7 %; Hematocrit (blood only) 39.7 % (37.0-47.0); Hemoglobin 13.9 g/dl (12.0-16.0); Immature Granulocytes # (auto) 0.06 K/uL (0.01-0.20); Immature Granulocytes % (auto) 0.7 %; Lymphocytes # (auto) 2.78 K/uL (1.20-3.40); Lymphocytes % (auto) 31.6 %; Mean Corpuscular Hemoglobin 31.4 pg (25.0-34.0); Mean Corpuscular Volume 89.6 fL (80.0-100.0); Mean Platelet Volume 9.2 fL (9.4-12.4); Monocytes # (auto) 0.63 K/uL (0.11-0.59); Monocytes % (auto) 7.2 %; Neutrophils # (auto) 5.03 K/uL (1.40-6.50); Neutrophils % (auto) 57.1 %; Platelet Count 346 K/uL (130-400); RDW Coefficient of Variation 12.8 % (11.5-14.5); RDW Standard Deviation 41.9 fL (36.4-46.3); Red Blood Count 4.43 M/uL (4.20-5.40)
[2024-02-04 09:24] LABS: BUN Creatinine Ratio 20.4 (10-20); Creatinine Clr Calc Pharmacy 89.7 ml/min; Potassium 4.1 mmol/L (3.5-5.1)
--- NOTE | 2024-02-04 10:43 | Discharge Summary ---
Date of Service February 04, 2024 Admission HPI Per Admitting Provider Jose Ackerman is a pleasant 60-year-old female with history of hypertension, hyperlipidemia presenting with UTI symptoms. patient had a bladder sling surgery performed on 11/25/2023 at [facility] with Dr. Burton. She reports that the surgery went well with no complications. She had a routine follow-up on 12/27/2023 and everything was fine. She was seen by gynecology on 01/03 for her annual physical. she developed UTI symptoms described as bladder pressure, increased urinary frequency, slow urinary stream and pain after urinating. She was started on Keflex which she completed and her symptoms improved. 1 day ago patient developed similar symptoms with bladder pressure, increased urinary frequency, decreased output and painful urination. She reports that her pain was so severe today it prompted her to come to the ER. She has been afebrile but has had some chills, hemodynamically stable. She has also had some nausea. Denies flank pain. Denies chest pain, cough, shortness of breath. No additional complaints at this time. In the ER she is afebrile, hemodynamically stable and nontoxic in appearance. ER course: Tylenol Ceftriaxone Admission Exam Per Admitting Provider General: patient resting comfortably, NAD, non-toxic in appearance, AA&O x 4 Skin: warm, dry, intact, no rashes or lesions HEENT: NC/AT, PERRL, EOMI, anicteric sclera, conjunctiva without injection, external ear normal to inspection and nontender, nares patent, moist mucus membranes, dentition intact, no oropharyngeal lesions, neck supple, trachea midline, no LAD, no thyromegaly, no JVD Heart: +S1/S2, regular, no m/r/g Lungs: equal air entry bilaterally, no rales/rhonchi/wheezes Abd: +BS, soft, NT/ND, no masses/organomegaly/ascites Ext: warm, 2+ pulses in UE/LE bilaterally, no clubbing/cyanosis or edema Neuro: nonfocal, patient AA&O x 4, speech intact, no facial droop, moving all extremities on command with equal strength 5/5 Principal Diagnosis L. pyelonephritis/UTI Discharge Exam General: patient resting comfortably, NAD, non-toxic in appearance, answers questions appropriately. Skin: warm, dry, intact HEENT: NC/AT, anicteric sclera, conjunctiva without injection, moist mucus membranes. Heart: +S1/S2, regular, no m/r/g Lungs: equal air entry bilaterally, no rales/rhonchi/wheezes Abd: +BS, soft, NT/ND Ext: warm, no clubbing/cyanosis or edema Neuro: nonfocal, speech intact, no facial droop, moving all extremities. Discharge Data Allergies Allergy/AdvReac Type Severity Reaction Status Date / Time azithromycin [From Zithromax] Allergy Intermediate Rash Verified 01/03/24 12:50 ciprofloxacin AdvReac Unknown Rash Verified 01/03/24 12:50 nitrofurantoin AdvReac Unknown GI symptoms Verified 01/03/24 12:50 Sulfa (Sulfonamide AdvReac Unknown Rash Verified 01/03/24 12:50 Antibiotics) Consultations 02/03/24 01:47 ED Decision to Admit Stat Ordered Studies 02/02/24 22:46 CT abd pelvis IV con only Stat Hospital Course (1) Acute pyelonephritis: (2) Hypertension: (3) Hypercholesterolemia: Plan Acute pyelonephritis - CT AP: nonobstructing renal stones and left pyelonephritis w/o flank pain - Patient afebrile and hemodynamically stable - Treatment with cefepime 2 g IV every 8 hours pending culture results - Blood and urine cultures pending - Patient allergic to Bactrim, ciprofloxacin, nitrofurantoin and azithromycin - Patient improved on Keflex in early January, potential abx therapy tbd once sensitivities are completed - Relieved 2 days of IV cefepime inpatient - Cephalexin 500mg BID for 8 days outpatient after d/c HTN Blood pressure stable. - Continue lisinopril 40 mg p.o. every morning - resume hydrochlorothiazide HLD Chronic. Stable. - Continue simvastatin 40 mg p.o. nightly Total Time Total Time Spent Total Time Spent (In Minutes): 25 minutes Discharge Plan Discharge Items Patient Disposition: Home - Self-Care Reason For Visit: PYLEONEPHRITIS Discharge Diagnosis: UTI w/ L Pyelonephritis Condition on Discharge: Good Activity: Per Instructions section Non-emergency contact: Primary Care Provider Call non-emergency contact if: your pain is not controlled Follow-up/Referrals: Atiya Hinton MD [Primary Care Provider] - Diet: Regular Addtl Attending Provider Instructions: You were admitted to the [facility] for a urinary tract infection and left pyelonephritis. You were treated with 2 days of cefepime IV abx during your stay to help control your urinary tract infection. While at [facility] you quickly recovered and your urine and blood was cultured to look for bacteria causing your infection. Your blood cultures were negative and your urine culture was positive for E. Coli. You had a similar UTI infection during the first week of January 2024 and quickly improved after a 7 day course of cephalexin. Although you had mild burning with urination yesterday and a lingering pelvic p ressure/pain related your bladder sling surgery, today you endorsed complete resolution of the burning upon urination. Throughout your stay you never had any flank or back pain. On CT imaging 2 non-obstructing kidney stones were found in the left kidney measuring 2mm and 6mm. Although these have not caused you any adverse symptoms currently, you should follow up with your PCP and potentially urologist to discuss if any further interventions should be done for these stones. Your antibiotics will be continued outpatient, and I recommend that you take Cephalexin 500mg twice per day approximately 12 hours apart for the next 8 days for complete resolution of your urinary tract infection. This antibiotic medication has been sent to your [facility]. A discharge summary will be sent to your primary care physician to ensure continuity of care. Please bring this discharge summary with you to your next office appointment so that your provider can review it at that time. Follow-up appointments: Make a follow-up appointment with your PCP within the next week. It is very important that you follow up with them shortly after discharge from the hospital. Medications: Your medication list has been reviewed and reconciled upon discharge to ensure accuracy and continuity of care. An updated list of all your medications is included with your hospital discharge paperwork. Please review this list closely, and make note of any changes. If you have any issues filling these prescriptions, please call [phone] and ask to leave a message for Dr. Miguel Norton. Take your medications as instructed; do not skip a dose of your medicines. Make sure all of your doctors know every medicine you are taking (including ksek-tgu-ksfvehz medicines, vitamins, and supplements). Call your primary care provider before taking any new medicines (including jxnd-oos-nokwjyw medicines, vitamins, and supplements), because some of these may interact with your current medications, or may make your symptoms worse. Tell your primary care provider if you cannot afford your medications. CONTACT YOUR PRIMARY CARE PROVIDER if you experience any of the following: Difficulty following your treatment plan, or difficulty taking medications CALL 911 OR GO TO THE EMERGENCY DEPARTMENT if you experience any of the following: Sudden, severe abdominal pain or nausea/vomiting Severe chest pain, or chest pain that radiates (moves) to your jaw or arm Sudden, severe shortness of breath or difficulty breathing Thank you for allowing us to participate in your care. Pending Studies at Discharge: No Stand-Alone Forms: My [facility] [employer], Smoking Cessation Medications and DC Order Prescriptions: New cephalexin 500 mg capsule 500 mg PO BID 8 Days Qty: 16 0RF Rx Instructions: Please take Cephalexin 500 mg twice daily for the next 8 days for a total of 16 tablets/doses. Please take this medication with food as it can cause some GI upset. Continued cyanocobalamin (vitamin B-12) 1,000 mcg tablet 1,000 mcg PO QAM multivitamin [Daily Multi-Vitamin] tablet 1 tab PO QAM cranberry 500 mg capsule 500 mg PO QAM calcium carbonate 600 mg calcium (1,500 mg) tablet 600 mg PO QDL Culturelle Abdominal Supp-Cmft 2 billion cell- 4 gram powder in packet 1 ea PO DAILY psyllium husk 0.4 gram capsule 0.4 g PO DAILY ferrous sulfate [Joaquim-Time] 325 mg (65 mg iron) tablet 325 mg PO Q2D magnesium glycinate 100 mg tablet 240 mg PO HS Qty: 30 0RF simvastatin 40 mg tablet 40 mg PO HS Qty: 90 3RF metformin 1,000 mg tablet 1,000 mg PO BID Qty: 60 6RF lisinopril 40 mg tablet 40 mg PO QAM Qty: 90 3RF hydrochlorothiazide 25 mg tablet 25 mg PO QAM Qty: 90 3RF aspirin 81 mg Tablet,Delayed Release (Dr/Ec) 81 mg PO DAILY omega-3 fatty acids Capsule 500 mg PO DAILY valacyclovir 1 gram tablet 2,000 mg PO BID PRN (Reason: Cold Sores) Rx Instructions: For cold sore Discharge Orders: Discharge Order (Routine); Ordered 02/04/24 Ordered By: Miguel Melton/Other Patient Handouts: Urinary Tract Infections in Women, ED Kidney Infection (Adult Female), ED Cystitis Female Adult, ED UTIs Women Admission Data Admit Date/Time: 02/03/24 02:17 Attending Provider: Gunnar Traore Admit Provider: Savita Jose Primary Care Provider: Atiya Hinton Other Providers: Savita Jose Other Interventions: Discharge Summary Assessment (RN) Last Done: 02/04/24 14:10 Supervising Physician Co-Signing Physician Notes ATTESTATION I also saw the patient and confirmed payne portions of the history and exam. I agree with the impression and plan in the resident documentation, and as summarized below. She feels well and is hopeful for discharge. EXAM VSS. Remains afebrile. Alert and oriented. No distress appreciated. Heart regular rate and rhythm Lungs clear with nonlabored respirations Abdomen soft and nontender DATA Labs WBC 8.80 renal function normal Imaging CT scan of the abdomen pelvis completed upon admission showed nonobstructing left renal calculi, uncomplicated cholelithiasis, mild enhancing thickening of the left pelvic collecting system and left ureter possibly consistent with pyelonephritis. Micro Urine culture collected 02/02/2024 show e. coli with sensitives pending. Blood cultures collected 02/03/2024 show no growth. IMPRESSION & PLAN Acute pyelonephritis hyponatremia, resolved hypokalemia, resolved She looks good and meets criteria for discharge. Only thing pending are sensitivities. Given improvement, will discharge on Keflex (which she has taken and tolerated before). We can check sensitives tomorrow and adjust if needed. She has appropriate follow up with PCP. Consider urology follow up given renal lithiasis. Additional per resident documentation Resident Activity Tracking Resident Involvement: Resident Care Provided Care Provided: Adult Hospital Medicine
== END 2024-02-04 14:10 | disposition home or self-care (01) ==
LOC: ED 22:30 → EDINP 22:30 → SUATTDRO 02-03 02:17 → 3N 02-03 03:26
DX: Z79.82 Long term (current) use of aspirin; Z88.8 Allergy status to other drugs, medicaments and biological substances; N10 Acute pyelonephritis; Z88.2 Allergy status to sulfonamides; Z79.84 Long term (current) use of oral hypoglycemic drugs; E83.42 Hypomagnesemia; Z79.899 Other long term (current) drug therapy